=== PATIENT | male | born 1960 | race Caucasian/White ===

== ENCOUNTER → 2017-04-07 | Emergency (ER) | payer OTHER ==
[~2017-04-07] VITALS: Ht 177.8 cm; Wt 113.4 kg
[~2017-04-07] MED LIST: BUPR1TAB17 PO; CLON0.5T PO; INDO50CA PO; INDO50SU2 PR; INDOMETHACIN 25 MG CAP PO ONE; LISI10TA4 PO; NAPR500T PO; OMEP40CA2 PO; VENL75TA2 PO
[2017-04-07 21:16] VITALS: BP 199/92
== END | disposition left against medical advice (07) ==
LOC: M ED 22:16
DX: M79.89 Other specified soft tissue disorders (principal); I10 Essential (primary) hypertension; Z79.899 Other long term (current) drug therapy; Z79.1 Long term (current) use of non-steroidal anti-inflammatories (NSAID)

== ENCOUNTER → 2017-04-08 | Outpatient (CLI) | payer OTHER ==
[~2017-04-08] MED LIST changes: -INDOMETHACIN 25 MG CAP PO ONE
--- NOTE | 2017-04-08 14:58 | REP ---
LEFT KNEE SERIES: Two views of the left knee performed. No definite acute fracture is seen. There is no dislocation. There is mild to moderate medial joint space narrowing with subchondral sclerosis. There is spurring of the superior pole of the patella. There is a small joint effusion. Signed by Andrey Smith MD 04/08/2017 04:01 P
== END ==
LOC: M ADAMS 14:26
PROVIDERS: ATTEND Family Medicine
DX: M25.562 Pain in left knee (principal)

== ENCOUNTER → 2018-11-13 | Outpatient (REF) | payer OTHER ==
[~2018-11-13] MED LIST changes: -BUPR1TAB17 PO; +BUPR1TAB53 PO; -CLON0.5T PO; +CLON0.5T8 PO; +NAPR-50 PO; -NAPR500T PO
[2018-11-13 13:15] LABS: BASO # 0.1 10^3/uL (0.0-0.2); BASO % 0.8 % (0.0-1.0); EOS # 0.3 10^3/uL (0.0-0.50); EOS % 4.5 % (0.0-3.0); HEMATOCRIT 40.8 % (42.0-52.0); HEMOGLOBIN 13.7 g/dl (13.5-17.5); LYMPH # 1.6 10^3/uL (1.5-4.5); LYMPH % 21.2 % (24.0-44.0); MEAN CORPUSCULAR HEMOGLOBIN 31.6 pg (27.0-33.0); MEAN CORPUSCULAR HGB CONC 33.6 g/dl (32.0-36.5); MONO # 0.7 10^3/uL (0.0-0.8); MONO % 9.6 % (0.0-5.0); NEUTROPHILS # 4.7 10^3/uL (1.8-7.7); NEUTROPHILS % 63.1 % (36.0-66.0); PLATELET COUNT, AUTOMATED 299 10^3/uL (150-450); RED BLOOD COUNT 4.34 10^6/uL (4.30-6.10); WHITE BLOOD COUNT 7.4 10^3/uL (4.0-10.0)
[2018-11-13 13:32] LABS: ALT/SGPT 27 U/L (12-78); BILIRUBIN,TOTAL 0.5 MG/DL (0.2-1.0); BLOOD UREA NITROGEN 23 MG/DL (7-18); C REACTIVE PROTEIN QUANTITATIV < 0.30 MG/DL (0.00-0.30); CARBON DIOXIDE LEVEL 27 MEQ/L (21-32); CHLORIDE LEVEL 108 MEQ/L (98-107); CHOLESTEROL LEVEL 215 MG/DL (<200); CHOLESTEROL RISK RATIO 3.981 (<5); CREATININE FOR GFR 0.79 MG/DL (0.70-1.30); FERRITIN 69 NG/ML (26-388); GLOMERULAR FILTRATION RATE > 60.0 (>56); GLUCOSE, FASTING 103 MG/DL (70-100); HDL CHOLESTEROL 54 MG/DL (>40); IRON (FE) 73 UG/DL (65-175); LDL CHOLESTEROL 143 MG/DL (<100); NON-HDL-C 161 MG/DL; PERCENT SATURATION 21.2 % (19.7-50.0); RHEUMATOID FACTOR QUANT < 10.0 IU/ML (<15.0); SODIUM LEVEL 143 MEQ/L (136-145); TOTAL IRON BINDING CAPACITY 345 UG/DL (250-450); TRIGLYCERIDES LEVEL 90 MG/DL (<150)
[2018-11-13 13:39] LABS: TOTAL 25(OH) VITAMIN D 33.2 NG/ML (30.0-100.0)
[2018-11-13 14:00] LABS: ERYTHROCYTE SEDIMENTATION RATE 7 mm/hr (0-20)
[2018-11-14 10:59] LABS: DRVV SCREEN 41.2 SEC
[2018-11-15 00:06] LABS: ANA (HEP2) Negative (.); Lyme Disease IgG/IgM Antibodie <0.91 ISR (0.00-0.90); Lyme Disease IgM Ab Quantitati <0.80 index (0.00-0.79)
== END ==
LOC: M SFHCADAM 10:20
PROVIDERS: ATTEND Physician Assistant Medical
DX: I10 Essential (primary) hypertension (principal); F15.20 Other stimulant dependence, uncomplicated; D50.9 Iron deficiency anemia, unspecified; E55.9 Vitamin D deficiency, unspecified; M25.50 Pain in unspecified joint

== ENCOUNTER → 2018-11-20 | Outpatient (REF) | payer OTHER ==
[2018-11-20 13:18] LABS: BASO % 0.6 % (0.0-1.0); EOS # 0.4 10^3/uL (0.0-0.50); EOS % 5.1 % (0.0-3.0); HEMATOCRIT 39.7 % (42.0-52.0); HEMOGLOBIN 13.4 g/dl (13.5-17.5); LYMPH # 1.8 10^3/uL (1.5-4.5); LYMPH % 25.6 % (24.0-44.0); MEAN CORPUSCULAR HEMOGLOBIN 31.6 pg (27.0-33.0); MEAN CORPUSCULAR HGB CONC 33.8 g/dl (32.0-36.5); MEAN CORPUSCULAR VOLUME 93.6 fl (80.0-96.0); MONO # 0.8 10^3/uL (0.0-0.8); MONO % 11.7 % (0.0-5.0); NEUTROPHILS % 56.7 % (36.0-66.0); PLATELET COUNT, AUTOMATED 279 10^3/uL (150-450); RED BLOOD COUNT 4.24 10^6/uL (4.30-6.10)
[2018-11-20 13:42] LABS: ERYTHROCYTE SEDIMENTATION RATE 7 mm/hr (0-20)
[2018-11-20 13:53] LABS: ALBUMIN 4.3 GM/DL (3.2-5.2); ALT/SGPT 31 U/L (12-78); BILIRUBIN,TOTAL 0.5 MG/DL (0.2-1.0); BLOOD UREA NITROGEN 32 MG/DL (7-18); CALCIUM LEVEL 9.1 MG/DL (8.5-10.1); CARBON DIOXIDE LEVEL 25 MEQ/L (21-32); CHLORIDE LEVEL 104 MEQ/L (98-107); CREATININE FOR GFR 0.82 MG/DL (0.70-1.30); GLOMERULAR FILTRATION RATE > 60.0 (>56); GLUCOSE, FASTING 107 MG/DL (70-100); RHEUMATOID FACTOR QUANT < 10.0 IU/ML (<15.0); SODIUM LEVEL 140 MEQ/L (136-145); TOTAL 25(OH) VITAMIN D 46.9 NG/ML (30.0-100.0); TOTAL PROTEIN 7.2 GM/DL (6.4-8.2); VITAMIN B12 LEVEL 449 PG/ML
[2018-11-20 13:54] LABS: FOLATE 11.7 NG/ML
[2018-11-20 14:43] LABS: HEMOGLOBIN A1c 5.2 %
[2018-11-21 10:34] LABS: DRVV SCREEN 43.1 SEC
[2018-11-22 08:35] LABS: VITAMIN E(ALPHA TOCOPHEROL) 11.5 mg/L (7.0-25.1); VITAMIN E(GAMMA TOCOPHEROL) 1.4 mg/L (0.5-5.5)
[2018-11-25 00:06] LABS: ANCA-ATYPICAL <1:20 titer (Neg:<1:20); ANTI DOUBLE STRAND-DNA AB <1 IU/mL (0-9); ANTINUCLEAR ANTIBODIES DIRECT Negative (Negative); COPPER PLASMA 83 ug/dL (72-166); CYTOPLASMIC NEUTROP AB ANCA-C <1:20 titer (Neg:<1:20); LEAD BLOOD ADULT 1 ug/dL (0-4); Lyme Disease IgG/IgM Antibodie <0.91 ISR (0.00-0.90); Lyme Disease IgM Ab Quantitati <0.80 index (0.00-0.79); MERCURY LEVEL None Detected ug/L (0.0-14.9); PERINUCLEAR AB ANCA-P <1:20 titer (Neg:<1:20); SJOGREN'S ANTI SS-A <0.2 AI (0.0-0.9); SJOGREN'S ANTI SS-B <0.2 AI (0.0-0.9); VITAMIN B1 LEVEL WHOLE BLOOD 130.3 nmol/L (66.5-200.0); VITAMIN B6,PYRIDOXAL PHOSPHATE 9.5 ug/L (5.3-46.7)
== END ==
LOC: M LABNEURO 09:08
PROVIDERS: ATTEND Psychiatry & Neurology Neurology
DX: G62.9 Polyneuropathy, unspecified (principal); G31.84 Mild cognitive impairment of uncertain or unknown etiology; R26.89 Other abnormalities of gait and mobility

== ENCOUNTER → 2018-12-25 | Outpatient (REF) | payer OTHER ==
[~2018-12-25] MED LIST changes: +AMLO5TAB6 PO; +HYDR25TAB PO; +LISI40TA PO; +MELO15TA28 PO
[2018-12-25 18:29] LABS: BASO # 0.1 10^3/uL (0.0-0.2); BASO % 0.6 % (0.0-1.0); EOS # 0.3 10^3/uL (0.0-0.50); HEMOGLOBIN 13.3 g/dl (13.5-17.5); LYMPH # 2.3 10^3/uL (1.5-4.5); MEAN CORPUSCULAR HEMOGLOBIN 31.3 pg (27.0-33.0); MEAN CORPUSCULAR HGB CONC 33.3 g/dl (32.0-36.5); MEAN CORPUSCULAR VOLUME 94.1 fl (80.0-96.0); MONO # 0.8 10^3/uL (0.0-0.8); MONO % 7.7 % (0.0-5.0); NEUTROPHILS # 6.2 10^3/uL (1.8-7.7); NEUTROPHILS % 64.1 % (36.0-66.0); PLATELET COUNT, AUTOMATED 302 10^3/uL (150-450); RED BLOOD COUNT 4.25 10^6/uL (4.30-6.10); WHITE BLOOD COUNT 9.7 10^3/uL (4.0-10.0)
[2018-12-25 18:31] LABS: BLOOD UREA NITROGEN 22 MG/DL (7-18); CARBON DIOXIDE LEVEL 31 MEQ/L (21-32); CHLORIDE LEVEL 108 MEQ/L (98-107); CREATININE FOR GFR 0.87 MG/DL (0.70-1.30); GLOMERULAR FILTRATION RATE > 60.0 (>56); GLUCOSE, FASTING 59 MG/DL (70-100); SODIUM LEVEL 143 MEQ/L (136-145)
[2018-12-25 18:45] LABS: INR 1.07
== END ==
LOC: M SFHCADAM 14:45
PROVIDERS: ATTEND Physician Assistant Medical
DX: Z01.818 Encounter for other preprocedural examination (principal); M17.12 Unilateral primary osteoarthritis, left knee

== ENCOUNTER → 2018-12-25 | Outpatient (CLI) | payer OTHER ==
--- NOTE | 2018-12-26 06:55 | REP ---
Clinical: Preoperative assessment . Comparison: None . Technique: PA and lateral. Findings: The mediastinum and cardiac silhouette are normal. The lung garcia demonstrate chronic-appearing changes without acute consolidation, effusion, or pneumothorax. The skeletal structures are intact and normal. Impression: 1. No acute cardiopulmonary process. Electronically Signed by Harry Moore MD 12/26/2018 06:47 A
== END ==
LOC: M ADAMS 14:50
PROVIDERS: ATTEND Physician Assistant Medical
DX: Z01.818 Encounter for other preprocedural examination (principal); M17.12 Unilateral primary osteoarthritis, left knee

== ENCOUNTER 2019-01-08 11:07 | Inpatient (IN) | payer OTHER ==
--- NOTE | 2019-01-02 15:28 | HPE ---
DATE OF ADMISSION: 01/08/2019 HISTORY OF PRESENT ILLNESS: This is a pleasant male with continuing symptomatic left knee osteoarthritis. He has consented for a left total knee arthroplasty per Dr. Pedro Lake. Medical optimization per DELVIS Garcia. X-rays are consistent with advanced osteoarthritis. ALLERGIES: NO KNOWN DRUG ALLERGIES. MEDICAL PROBLEM LIST: Left knee symptomatic osteoarthritis and hypertension. MEDICATIONS: - Drisdol 50,000 units one capsule orally weekly - hydrochlorothiazide 25 mg tablet one tablet the morning - Lisinopril 40 mg tablet 1 tablet orally daily - amlodipine besylate 5 mg tablet 1 tablet orally twice a day - Mobic 15 mg tablet 1 tablet orally once a day The patient notes his recent blood pressure medication is causing coldness at the hands. His primary care provider is aware of that and they are planning on changing it postoperatively. Medical problem list includes symptomatic left knee osteoarthritis. Morbid obesity. Sensorineural hearing loss. Nicotine dependence. The patient wanted to make it clear that there are weeks that he does not smoke at all. He has one cigarette socially and never actually buys them. Hypertension. Noncompliance. Anxiety. Fatty liver. Iron deficiency anemia. Caffeine addiction. Vitamin D deficiency. Questionable rheumatoid arthritis. Chronic joint pain. SOCIAL HISTORY: As mentioned above regarding his cigarette intake. Denies ethanol intake or illicit drugs. Admits to four to six cups of coffee daily, large consumption of soda. FAMILY HISTORY: Noncontributory. He had hospitalization as a child for encephalitis. REVIEW OF SYSTEMS: Denies chest pain, shortness of breath, dyspnea on exertion, fever, chills, malaise, upper respiratory or urinary tract symptoms. LABORATORY DATA: 11/13/2018 were reviewed. BUN was elevated 23, GFR greater than 60. Otherwise no gross abnormalities. Hematocrit is slightly low at 40.8. Lymph percentage 21.2, slightly low mono percentage 9.6, eosinophils 4.5%. Chest x-ray completed by [facility] on 12/25/2018 showed no acute cardiac cardiopulmonary process. There were further preop labs by Amrita Juares, 12/25/2018: RBC 4.25, hemoglobin 13.3, hematocrit 40.0, mono percentage 7.7, glucose 59, BUN 22, chloride 108, anion gap 4. Otherwise within normal limits. I do not have electrocardiogram (EKG) results for viewing. PHYSICAL EXAMINATION: Blood pressure 138/67, pulse 42, temperature 97, height 68, weight 240, BMI 36.5, respiration 18. This is a pleasant, well-developed, well-nourished obese male in no acute distress. He is alert and oriented times three. Mood and affect are appropriate. Normocephalic. Neck: Supple. Negative jugular venous distention (JVD) or bruits. Lungs clear to auscultation. Chest with regular rate and rhythm. Bowel sounds x4, soft, nontender. Bilateral lower extremity: Skin is benign, noninfectious looking, intact. Benign noninfectious looking left knee. Positive medial joint line tenderness with crepitance about the knee through flexion and extension. IMPRESSION: 1. Left knee symptomatic advanced tricompartmental degenerative joint disease. To the patient consented for left total knee arthroplasty per Dr. Pedro Lake. 2. Medical optimization per Amrita Juares. 3. On-call to OR 2 grams IV Kefzol in OR. 4. Sequential compression device (SCD) and TEDs in the OR. 5. Reminder the patient does have sensorineural hearing loss. MTDD
[~2019-01-08] VITALS: Ht 175.3 cm; Wt 112.0 kg
[~2019-01-08 11:07] MED LIST changes: +LR 1,000 ML IV ONE
[2019-01-08] MEDS ORDERED: fentaNYL 100 MCG/2 ML INJECTION (J3010) As Ordered ONE ×2 (11:29→13:01)
[2019-01-08] MEDS ORDERED: PROPOFOL 200 MG/20 ML VIAL As Ordered ONE ×5 (11:29→15:53)
[2019-01-08] MEDS ORDERED: LIDOCAINE 2% INJ 100 MG/5 ML SDV (FOR ANES.) As Ordered ONE (11:29)
[2019-01-08] MEDS ORDERED: MIDAZOLAM INJ 2 MG/2 ML VIAL (J2250) As Ordered ONE ×2 (11:29→13:01)
[2019-01-08] MEDS ORDERED: BUPIVACAINE/DEXTROSE 0.75% 2 ML AMP As Ordered ONE (11:34)
[2019-01-08] MEDS ORDERED: BISO5TAB5 (12:20)
[2019-01-08] MEDS ORDERED: ACET1TAB55 PO ×2 (12:20)
[2019-01-08] MEDS ORDERED: ceFAZolin 1GM INJ (J0690 PER 500MG) As Ordered ONE (12:38)
[2019-01-08] MEDS ORDERED: EPINEPHrine INJ 1 MG/ML 1ML AMP As Ordered ONE (12:38)
[2019-01-08] MEDS ORDERED: TRANEXAMIC ACID 100 MG/ML 10ML VIAL As Ordered ONE (12:38)
[2019-01-08] MEDS ORDERED: BUPIVACAINE LIPOSOME/PF 1.3% 20ML VIAL (13.3MG/ML)(EXPAREL)(C9290 PER1MG) As Ordered ONE (12:39)
--- NOTE | 2019-01-08 12:49 | IPN ---
DATE: 01/08/2019 The patient was seen and examined. He wishes to go ahead with a left total knee arthroplasty. He does have some memory issues and is seeing neurology about this. He understands the nature of the procedure, the risks of bleeding, infection, damage to nerves and vessels, persistent pain, stiffness, wear loosening, blood clots, medical problems, among others.
[2019-01-08] MEDS ORDERED: MUPI2OI (13:07)
[2019-01-08] MEDS: MIDAZOLAM INJ 2 MG/2 ML VIAL (J2250) IV PRN ×2 (13:22→13:27)
[2019-01-08] MEDS: fentaNYL 100 MCG/2 ML INJECTION (J3010) IV PRN ×2 (13:22→13:27)
[2019-01-08] MEDS ORDERED: GLYCOPYRROLATE INJ 0.2 MG/ML 2 ML VIAL IV ONE (14:00)
[2019-01-08] MEDS ORDERED: GLYCOPYRROLATE INJ 0.2 MG/ML 2 ML VIAL As Ordered ONE (14:34)
[2019-01-08] MEDS ORDERED: ONDANSETRON 4MG/2ML VIAL (J2405) IV PRN ×2 (16:30)
[2019-01-08] MEDS ORDERED: LR 1,000 ML IV SCH (16:30)
[2019-01-08] MEDS ORDERED: FLEET ENEMA PR PRN (16:30)
[2019-01-08] MEDS ORDERED: METOCLOPRAMIDE INJ 10MG/2ML VIAL (J2765) IV PRN (16:30)
[2019-01-08] MEDS ORDERED: PERCOCET 5MG/325MG TAB PO PRN ×2 (16:30)
[2019-01-08] MEDS ORDERED: fentaNYL 100 MCG/2 ML INJECTION (J3010) IV PRN (16:30)
[2019-01-08] MEDS ORDERED: ACETAMINOPHEN TAB 650MG DOSE (2X325MG) PO PRN (16:30)
[2019-01-08] MEDS ORDERED: MORPHINE 4 MG/ML 1ML VIAL/SYRINGE (J2270) IV PRN ×2 (16:30)
--- NOTE | 2019-01-08 17:12 | REP ---
Left knee series: Two views: History: Postoperative evaluation. Comparison left knee radiographs April 08, 2017. Findings: The patient is status post left knee arthroplasty. Arthroplasty components are well aligned with respect to each other and their samish bone. Anterior skin ronit are seen. Periarticular soft tissue emphysema and swelling is noted. Impression: Status post left knee arthroplasty. Electronically Signed by Wilfrido Shah MD 01/08/2019 05:19 P
[2019-01-08 17:45] VITALS: BP 131/98
[2019-01-08 18:15] VITALS: BP 131/59
[2019-01-08 19:15] VITALS: BP 175/82
[2019-01-08 20:15] VITALS: BP 173/70
[2019-01-08 21:15] VITALS: BP 168/68
[2019-01-08 22:00] VITALS: BP 158/72
[2019-01-09 02:00] VITALS: BP 132/68
[2019-01-09] MEDS: LR 1,000 ML IV SCH ×2 (05:50→06:39)
[2019-01-09 06:00] VITALS: BP 134/62
[2019-01-09] MEDS ORDERED: ONDANSETRON 4 MG TAB (S0181) PO PRN (07:00)
[2019-01-09 07:02] LABS: HEMATOCRIT 33.6 % (42.0-52.0); HEMOGLOBIN 11.4 g/dl (13.5-17.5); MEAN CORPUSCULAR HEMOGLOBIN 31.5 pg (27.0-33.0); MEAN CORPUSCULAR HGB CONC 33.9 g/dl (32.0-36.5); MEAN CORPUSCULAR VOLUME 92.8 fl (80.0-96.0); PLATELET COUNT, AUTOMATED 222 10^3/uL (150-450); RED BLOOD COUNT 3.62 10^6/uL (4.30-6.10)
[2019-01-09] MEDS: MIRALAX *UNIT DOSE* 17GM PACKET PO SCH ×2 (09:00→09:27)
[2019-01-09] MEDS: MOM 30ML SUSPENSION UDC PO SCH ×2 (09:00→09:27)
[2019-01-09] MEDS ORDERED: XARE10TA PO (09:07)
[2019-01-09] MEDS ORDERED: PERC5TAB12 PO (09:07)
[2019-01-09] MEDS: PERCOCET 5MG/325MG TAB PO PRN ×2 (09:31→20:37)
--- NOTE | 2019-01-09 09:55 | RO ---
DATE OF PROCEDURE: 01/08/2019 PREOPERATIVE DIAGNOSIS: Left knee osteoarthritis. POSTOPERATIVE DIAGNOSIS: Left knee osteoarthritis, severe significant varus deformity in flexion contracture. PROCEDURE: Left total knee arthroplasty using an Attune rotating platform posterior stabilized size 5 femur, size 7 tibia tray, 12 polyethylene, 38 patellar button. SURGEON: Pedro Lake MD PROSPECTING DRILLER: DELVIS Lowe ANESTHESIA: Spinal. ESTIMATED BLOOD LOSS: 50. COMPLICATIONS: None. INDICATIONS: This is a 58-year-old, obese gentleman who has had persistent knee pain secondary to arthritis and some varus deformity. He failed conservative management and wished to go ahead with surgical treatment. He understood the nature of this, the risks of bleeding, infection, damage to nerves, vessels, persistent pain, stiffness, blood clots, medical problems, , among others. PROCEDURE: The patient was taken to the operating room and placed in supine position after spinal anesthesia was induced. The left lower extremity was prepped and draped in usual sterile fashion. Time-out was performed. Tourniquet was inflated. I then created a longitudinal incision over the anterior aspect of the knee and a medial parapatellar arthrotomy was performed. With some difficulty I was able to jorge the patella but I did have to do a lateral release to do so. I flexed the knee up, removed some large osteophytes and used a canal initiating reamer followed by the intramedullary guide on the femoral side and pinned this in place. The retail store assistant made the distal femoral cut removing about 9 mm of bone and it was set at 5 degrees of valgus with the guide. I then sized the femur to be a 5. We had pinholes in the end of the femur and external rotation was dialed in. I then placed the size 5 cutting block, secured it in place and made the remaining cuts. I removed the excess bone. I then prepared the tibia and the retractors were placed. I placed the tibial alignment guide, appropriate amount (dictation cut off). I checked it with the external alignment guide. The proximal tibia cut was made protecting soft tissues, removed the bone. I did have to take a fairly sizable cut due to his varus deformity. I ended up taking two off the low side and the bone was very hard. I then removed soft tissue and osteophytes from either side of the knee, placed the box cutting guide on the femur as the posterior cruciate ligament (PCL) was deficient and made the remaining three cuts removing this bone. I then prepared the tibial surface. Prior to this, I used spacer blocks and determined that a size 12 was appropriate thickness in flexion and extension. The tibial tray was prepared. It sized to be a 7. I drilled and broached and placed the trial components and the components fit very nicely. He had excellent range of motion and stability, soft tissue balance. I had done a medial release at the beginning. I did have to slightly extend that at this point, but was able to balance him quite well. I then freehand cut the patella removing about 70 mm of bone. Sized to be a 38. The drill holes were placed and the trial component was put in place and the patella tracked for (dictation cut off). I also placed drill holes in the end of the femur. Once I was satisfied the trial components. I removed these. The retail store assistant prepared the bone cement in the modern technique on the back table. I irrigated the bony surfaces. Dried them carefully. I placed the Exparel in the deep tissues. I then cemented on the tibial component and the femoral component. I removed excess bone cement. Placed polyethylene. Brought the knee out in near extension and cemented on the patella. Held it in place with a patellar clamp and removed all excess bone cement. I irrigated copiously. Placed the tranexamic acid (TXA) in the knee and then closed the deep layer with #1 Vicryl suture and running Stratafix suture and did a final irrigation prior to final wound closure deep. I put the knee through range of motion. There was no clicking. There was excellent watertight closure. Irrigated, closed the subcu with #2-0 Vicryl and the skin with ronit. Sterile dressing was applied and the tourniquet was deflated at 69 minutes. He was taken to recovery room in stable condition. There were known complications. The plan will be routine postop. This is coded as an unusually difficult procedure due to the patient's morbid obesity and his significant deformity. This added a significant amount of time and difficulty to the case. The retail store assistant was instrumental in holding retractors and making one of the bone cuts, mixing the bone cement and assisting in wound closure.
[2019-01-09] MEDS ORDERED: MORPHINE 15 MG SA TAB PO ONE (13:15)
[2019-01-09 14:00] VITALS: BP 144/59
[2019-01-09] MEDS: RIVAROXABAN 10 MG TAB (XARELTO) PO SCH (17:36)
[2019-01-09 22:00] VITALS: BP 137/63
[2019-01-10] MEDS: PERCOCET 5MG/325MG TAB PO PRN ×2 (05:36→19:59)
[2019-01-10 06:00] VITALS: BP 138/76
[2019-01-10 06:50] LABS: HEMATOCRIT 33.3 % (42.0-52.0); HEMOGLOBIN 11.3 g/dl (13.5-17.5); MEAN CORPUSCULAR HGB CONC 33.9 g/dl (32.0-36.5); MEAN CORPUSCULAR VOLUME 94.3 fl (80.0-96.0); PLATELET COUNT, AUTOMATED 208 10^3/uL (150-450); RED BLOOD COUNT 3.53 10^6/uL (4.30-6.10); WHITE BLOOD COUNT 11.2 10^3/uL (4.0-10.0)
--- NOTE | 2019-01-10 08:35 | IPNPDOC ---
Subjective Date Seen The patient was seen on 01/10/19. Subjective Chief Complaint/HPI Had some low back pain yesterday when he tried to get OOB. Pain radiated to right groin. He has chronic intermittent LBP and this is similar to flare-ups he has had in the past. He required multiple attempts at his spinal but his back pain is lower than the spinal site Has fever this am - No SOB or cough. Had urinary retention the night after surgery ralated to his spinal, required straight cath x1. Urinating normally now without dysuria, frequency or urgency. Left knee feels warm and swollen to patient but pain controlled. Constitutional: Reports: Fever Pulmonary: Denies: Dyspnea, Cough Cardiovascular: Denies: Chest Pain, Palpitations Gastrointestinal: Reports: Other Symptoms (Had significant heartburn last night); Denies: Nausea, Vomiting, Abdominal Pain, Diarrhea, Constipation Genitourinary: Denies: Dysuria, Frequency Musculoskeletal: Reports: Joint Pain (Left knee as expected post-op) Objective Physical Examination General Exam: Positive: Alert, No Acute Distress Chest Exam: Positive: Clear to auscultation; Negative: Rales, Rhonchi, Wheezing Heart Exam: Positive: Rate Normal, Regular Rhythm Abdomen Exam: Positive: Normal bowel sounds, Soft; Negative: Tenderness Extremity Exam: Positive: Swelling (left knee a little warm and swollen, but no erythema or significant tenderness. ), Other (Back with some eccymosis and heeled injection sites in mid lumbar spine without swelling, erythema or significant tenderness. Lower thoracic spine without tenderness over vertebral bodies or perispinal muscles. ); Negative: Edema Assessment /Plan Problems (1) Fever Status: Acute Problem Text: Temp 101.9 this am. WBC down c/w yesterday. Likely post-op atelectasis. Encourage IS and OOB. Monitor temp and symptoms. If persists, will get U/C and CXR. Spinal site has ecchymosis and a little tender from multiple attempts at spinal but no swelling, erythema or significant tenderness to suggest abscess or infection. (2) Status post left knee replacement Problem Text: per surgery Plan/VTE VTE Prophylaxis Ordered?: Yes (xarelto) VS, I&O, 24H, Fishbone Vital Signs/I&O Vital Signs Date Time Temp Pulse Resp B/P (MAP) Pulse Ox O2 Delivery O2 Flow Rate FiO2 01/10/19 06:06 15 01/10/19 06:00 101.5 74 138/76 (96) 98 01/09/19 06:00 2.0 I&O- Last 24 Hours up to 6 AM 01/10/19 06:00 Intake Total 1920 ml Output Total 1750 ml Balance 170 ml Laboratory Data 24H LABS Laboratory Tests 2 01/10/19 06:30: Nucleated Red Blood Cells % (auto) 0.0 CBC/BMP Laboratory Tests 01/10/19 06:30 Red Blood Count 3.53 L, Mean Corpuscular Volume 94.3, Mean Corpuscular Hemoglobin 32.0, Mean Corpuscular Hemoglobin Concent 33.9, Red Cell Distribution Width 12.6 HARLEY CORTEZ PA-C Jan 10, 2019 08:35 Joey Batres MD Jan 10, 2019 15:51
[2019-01-10] MEDS ORDERED: CALCIUM CARBONATE 500 MG CHEW U/D PO PRN (08:45)
[2019-01-10] MEDS: MIRALAX *UNIT DOSE* 17GM PACKET PO SCH (09:10)
[2019-01-10] MEDS: MOM 30ML SUSPENSION UDC PO SCH (09:10)
[2019-01-10 09:54] LABS: HEPATITIS B SURFACE ANTIGEN NEGATIVE (NEGATIVE)
[2019-01-10 10:45] LABS: ALBUMIN 3.2 GM/DL (3.2-5.2); ALT/SGPT 22 U/L (12-78); BILIRUBIN,TOTAL 0.7 MG/DL (0.2-1.0); BLOOD UREA NITROGEN 22 MG/DL (7-18); CALCIUM LEVEL 7.9 MG/DL (8.5-10.1); CARBON DIOXIDE LEVEL 29 MEQ/L (21-32); CHLORIDE LEVEL 108 MEQ/L (98-107); CREATININE FOR GFR 0.78 MG/DL (0.70-1.30); GLOMERULAR FILTRATION RATE > 60.0 (>56); GLUCOSE, FASTING 117 MG/DL (70-100); POTASSIUM SERUM 3.4 MEQ/L (3.5-5.1); SODIUM LEVEL 142 MEQ/L (136-145); TOTAL PROTEIN 5.9 GM/DL (6.4-8.2)
[2019-01-10 14:00] VITALS: BP 133/68
[2019-01-10] MEDS: RIVAROXABAN 10 MG TAB (XARELTO) PO SCH (18:20)
[2019-01-10 22:00] VITALS: BP 139/71
[2019-01-11 06:00] VITALS: BP 133/68
[2019-01-11] MEDS ORDERED: XARE10TA PO (06:38)
[2019-01-11 07:10] LABS: HEMATOCRIT 32.3 % (42.0-52.0); HEMOGLOBIN 10.9 g/dl (13.5-17.5); MEAN CORPUSCULAR HEMOGLOBIN 31.1 pg (27.0-33.0); MEAN CORPUSCULAR HGB CONC 33.7 g/dl (32.0-36.5); MEAN CORPUSCULAR VOLUME 92.3 fl (80.0-96.0); PLATELET COUNT, AUTOMATED 201 10^3/uL (150-450); WHITE BLOOD COUNT 8.6 10^3/uL (4.0-10.0)
--- NOTE | 2019-01-11 08:43 | IPNPDOC ---
Subjective Date Seen The patient was seen on 01/11/19. Subjective Chief Complaint/HPI Patient feels well today. Back pain has almost completely resolved. No dysuria. No SOb or cough Constitutional: Reports: Fever (Temp down to 99.5) Pulmonary: Denies: Dyspnea, Cough Cardiovascular: Denies: Chest Pain, Palpitations Gastrointestinal: Denies: Nausea, Vomiting, Abdominal Pain, Diarrhea, Constipation Genitourinary: Denies: Dysuria, Frequency, Hematuria Objective Physical Examination General Exam: Positive: Alert, No Acute Distress (up in chair, bright, alert) Chest Exam: Positive: Clear to auscultation; Negative: Rales, Rhonchi, Wheezing Heart Exam: Positive: Rate Normal, Regular Rhythm Abdomen Exam: Positive: Normal bowel sounds, Soft; Negative: Tenderness Extremity Exam: Positive: Swelling (left knee a little warm and swollen, but no erythema or significant tenderness. ), Other (Back with some eccymosis and heeled injection sites in mid lumbar spine without swelling, erythema or significant tenderness. Lower thoracic spine without tenderness over vertebral bodies or perispinal muscles. ); Negative: Edema Assessment /Plan Problems (1) Fever Status: Acute Response to Treatment: Improving Problem Text: 01/11 - No further fever. Tmax 99.5 this am. WBC normalized. No cough or SOB. Cont IS and OOB for presumed post-op atelectasis. U/A without bacteria, leukocytes or nitrates. Some RBCs likely from straight cath trauma earlier in admission. (2) Status post left knee replacement Problem Text: per surgery (3) HTN (hypertension) Status: Chronic Response to Treatment: Stable Problem Text: Patient has apparently been taking all of his usual Home meds which he brought with him to hospital. BP stable, so will d/c hoe on usual meds. Plan/VTE VTE Prophylaxis Ordered?: Yes (xarelto) Disposition medically stable for d/c from our standpoint. VS, I&O, 24H, Fishbone Vital Signs/I&O Vital Signs Date Time Temp Pulse Resp B/P (MAP) Pulse Ox O2 Delivery O2 Flow Rate FiO2 01/11/19 06:00 99.5 71 19 133/68 (89) 98 01/09/19 06:00 2.0 I&O- Last 24 Hours up to 6 AM 01/11/19 06:00 Intake Total 1920 ml Output Total 1450 ml Balance 470 ml Laboratory Data 24H LABS Laboratory Tests 2 01/10/19 16:23: Urine Color YELLOW, Urine Appearance CLEAR, Urine pH 6.0, Urine Specific [place] 1.026, Urine Protein NEGATIVE, Urine Glucose (UA) NEGATIVE, Urine Ketones NEGATIVE, Urine Blood 1+H, Urine Nitrite NEGATIVE, Urine Bilirubin NEGATIVE, Urine Urobilinogen 4.0H, Urine Leukocyte Esterase NEGATIVE, Urine WBC (Auto) 0, Urine RBC (Auto) 19H, Urine Hyaline Casts (Auto) 0, Urine Bacteria (Auto) NEG ATIVE, Urine Squamous Epithelial Cells 0, Urine Mucus (Auto) SMALL, Urine Sperm (Auto) 01/11/19 06:43: Nucleated Red Blood Cells % (auto) 0.0 CBC/BMP Laboratory Tests 01/11/19 06:43 Red Blood Count 3.50 L, Mean Corpuscular Volume 92.3, Mean Corpuscular Hemogl obin 31.1, Mean Corpuscular Hemoglobin Concent 33.7, Red Cell Distribution Width 12.5 Attending Note Attending Note patient remains afebrile. lungs clear. should be ready for discharge if Ortho approves. HARLEY CORTEZ PA-C Jan 11, 2019 08:43 Joey Batres MD Jan 11, 2019 10:13
[2019-01-11] MEDS: MOM 30ML SUSPENSION UDC PO SCH (08:44)
[2019-01-11] MEDS: MIRALAX *UNIT DOSE* 17GM PACKET PO SCH (08:44)
[2019-01-11] MEDS: PERCOCET 5MG/325MG TAB PO PRN (08:44)
[2019-01-11 12:12] LABS: BLOOD UREA NITROGEN 19 MG/DL (7-18); CALCIUM LEVEL 7.7 MG/DL (8.5-10.1); CARBON DIOXIDE LEVEL 26 MEQ/L (21-32); CHLORIDE LEVEL 106 MEQ/L (98-107); CREATININE FOR GFR 0.75 MG/DL (0.70-1.30); GLOMERULAR FILTRATION RATE > 60.0 (>56); GLUCOSE, FASTING 104 MG/DL (70-100); POTASSIUM SERUM 3.5 MEQ/L (3.5-5.1); SODIUM LEVEL 140 MEQ/L (136-145)
== END 2019-01-11 11:22 | disposition home or self-care (01) | DRG 302 ==
LOC: M OR 11:07 → M MS5PR 17:30
PROVIDERS: ADMIT Orthopaedic Surgery; ATTEND Orthopaedic Surgery
PROC: 0SRD0J9 Replacement of Left Knee Joint with Synthetic Substitute, Cemented, Open Approach (ICD-10-PCS; principal; 2019-01-08 12:45)
DX: M17.12 Unilateral primary osteoarthritis, left knee (principal); K76.0 Fatty (change of) liver, not elsewhere classified; M06.9 Rheumatoid arthritis, unspecified; E66.01 Morbid (severe) obesity due to excess calories; H90.5 Unspecified sensorineural hearing loss; I10 Essential (primary) hypertension; F41.9 Anxiety disorder, unspecified; D50.9 Iron deficiency anemia, unspecified; R33.9 Retention of urine, unspecified; R50.82 Postprocedural fever; J98.11 Atelectasis; M54.5 Low back pain; Z68.34 Body mass index [BMI] 34.0-34.9, adult; Z79.899 Other long term (current) drug therapy; Z79.1 Long term (current) use of non-steroidal anti-inflammatories (NSAID)

== ENCOUNTER → 2019-02-13 | Outpatient (REF) ==
[~2019-02-13] MED LIST changes: +ACET1TAB55 PO; +BISO5TAB5; -LR 1,000 ML IV ONE; +MUPI2OI; -NAPR-50 PO; +NAPR-837 PO; +PERC5TAB12 PO; +XARE10TA PO
--- NOTE | 2019-02-14 02:30 | REP ---
Clinical: Technique: AP, lateral, bilateral oblique and sunrise views of the left knee. Findings: Evidence for prior replacement. Femoral and tibial components appear normal. Mild soft tissue swelling and possible effusion cannot be excluded. Postoperative and degenerative changes involving the patella remains stable. Impression: Cannot exclude mild swelling and effusion. Electronically Signed by Harry Moore MD 02/14/2019 02:22 A
== END ==
LOC: M SMT 10:42
PROVIDERS: ATTEND Internal Medicine
DX: Z02.71 Encounter for disability determination (principal)

== ENCOUNTER → 2019-05-08 | Outpatient (CLI) | payer OTHER ==
[~2019-05-08] MED LIST changes: -INDO50CA PO; +INDO50CA11 PO
--- NOTE | 2019-05-09 07:21 | ECGEPIP ---
[facility] Test Date: 2019-05-08 Pat Name: ESCOBAR FRANCO Department: Room: - Gender: Male Director Of Operations For Therapy: : 1960 Requested By: Pedro Lake Order Number: [id number] Reading MD: Lauryn Fajarod Measurements Intervals [place] Rate: 51 P: 64 TX: 150 QRS: QRSD: 184 T: QT: 465 QTc: 430 Interpretive Statements SINUS BRADYCARDIA MARKED LEFT AXIS DEVIATION RIGHT BUNDLE BRANCH BLOCK NO PRIOR Electronically Signed on 05-09-2019 7:21:42 EDT by Lauryn Fajardo
== END ==
LOC: M EKG 12:13
PROVIDERS: ATTEND Orthopaedic Surgery
DX: Z01.810 Encounter for preprocedural cardiovascular examination (principal); M24.562 Contracture, left knee; I10 Essential (primary) hypertension

== ENCOUNTER → 2019-06-12 | Outpatient (REF) | payer OTHER ==
[2019-06-12 13:45] LABS: BASO # 0.1 10^3/uL (0.0-0.2); BASO % 0.8 % (0.0-1.0); EOS # 0.4 10^3/uL (0.0-0.50); EOS % 5.7 % (0.0-3.0); HEMATOCRIT 37.7 % (42.0-52.0); HEMOGLOBIN 12.4 g/dl (13.5-17.5); LYMPH # 1.6 10^3/uL (1.5-4.5); LYMPH % 25.9 % (24.0-44.0); MEAN CORPUSCULAR HEMOGLOBIN 32.5 pg (27.0-33.0); MEAN CORPUSCULAR HGB CONC 32.9 g/dl (32.0-36.5); MONO # 0.8 10^3/uL (0.0-0.8); MONO % 12.5 % (0.0-5.0); NEUTROPHILS # 3.5 10^3/uL (1.8-7.7); NEUTROPHILS % 54.8 % (36.0-66.0); PLATELET COUNT, AUTOMATED 243 10^3/uL (150-450); RED BLOOD COUNT 3.81 10^6/uL (4.30-6.10); WHITE BLOOD COUNT 6.3 10^3/uL (4.0-10.0)
[2019-06-12 13:58] LABS: ALBUMIN 3.7 GM/DL (3.2-5.2); ALT/SGPT 24 U/L (12-78); BILIRUBIN,TOTAL 0.3 MG/DL (0.2-1.0); BLOOD UREA NITROGEN 29 MG/DL (7-18); CALCIUM LEVEL 9.3 MG/DL (8.5-10.1); CARBON DIOXIDE LEVEL 30 MEQ/L (21-32); CHLORIDE LEVEL 110 MEQ/L (98-107); CHOLESTEROL LEVEL 182 MG/DL (<200); CHOLESTEROL RISK RATIO 4.666 (<5); CREATININE FOR GFR 0.91 MG/DL (0.70-1.30); GLOMERULAR FILTRATION RATE > 60.0 (>56); GLUCOSE, FASTING 101 MG/DL (70-100); HDL CHOLESTEROL 39 MG/DL (>40); LDL CHOLESTEROL 113 MG/DL (<100); NON-HDL-C 143 MG/DL; POTASSIUM SERUM 3.9 MEQ/L (3.5-5.1); SODIUM LEVEL 145 MEQ/L (136-145); THYROID STIMULATING HORMONE 0.599 uIU/ML (0.358-3.740); TOTAL 25(OH) VITAMIN D 28.5 NG/ML (30.0-100.0); TOTAL PROTEIN 6.7 GM/DL (6.4-8.2); TRIGLYCERIDES LEVEL 151 MG/DL (<150)
== END ==
LOC: M SFHCADAM 08:07
PROVIDERS: ATTEND Physician Assistant Medical
DX: I10 Essential (primary) hypertension (principal); D50.9 Iron deficiency anemia, unspecified; F17.210 Nicotine dependence, cigarettes, uncomplicated

== ENCOUNTER 2020-08-18 09:18 | Emergency (ER) | payer OTHER ==
[~2020-08-18] VITALS: Ht 177.8 cm; Wt 113.7 kg
[~2020-08-18 09:18] MED LIST changes: +AMLO1TAB24 PO; -AMLO5TAB6 PO; +BISO5TAB14; -BISO5TAB5; +CLON0.5T2 PO; -CLON0.5T8 PO; -INDO50CA11 PO; +INDO50CA91 PO; -OMEP40CA2 PO; +OMEP40CA97 PO
[2020-08-18 09:19] VITALS: BP 183/68
[2020-08-18] MEDS ORDERED: OMEP-218 (09:28)
[2020-08-18] MEDS ORDERED: MELO15TA28 (09:28)
[2020-08-18] MEDS ORDERED: diphenhydrAMINE 50MG/ML VIAL (J1200) IV STA (09:46)
[2020-08-18] MEDS ORDERED: CLIN150C14 PO (09:49)
[2020-08-18] MEDS ORDERED: BENA25CA4 PO (09:50)
[2020-08-18] MEDS ORDERED: FAMOTIDINE INJ 20MG/2ML VIAL (S0028 PER 1) IVP ONE (10:00)
[2020-08-18] MEDS ORDERED: cefTRIAXone SOD 1 GM in D5W MINI-BAG PLUS 50 ML IV ONE (10:00)
[2020-08-18] MEDS ORDERED: dexameTHASONE 20MG/5ML VIAL (J1100 PER 1MG) IV ONE (10:00)
== END 2020-08-18 13:22 | disposition home or self-care (01) ==
LOC: M ED 09:18
DX: K12.2 Cellulitis and abscess of mouth (principal); I10 Essential (primary) hypertension; F32.9 Major depressive disorder, single episode, unspecified; F41.9 Anxiety disorder, unspecified; M54.9 Dorsalgia, unspecified; Z79.899 Other long term (current) drug therapy
CPT/HCPCS: 96365; 96366; 96375; 99283; J0696; J1100; J1200

== ENCOUNTER → 2020-12-08 | Outpatient (REF) | payer OTHER ==
[~2020-12-08] MED LIST changes: +BENA25CA4 PO; +CLIN150C15 PO; +MELO15TA28; +OMEP-218
[2020-12-08 18:26] LABS: HEMATOCRIT 44.5 % (42.0-52.0); HEMOGLOBIN 14.6 g/dl (13.5-17.5); MEAN CORPUSCULAR HEMOGLOBIN 31.4 pg (27.0-33.0); MEAN CORPUSCULAR HGB CONC 32.8 g/dl (32.0-36.5); MEAN CORPUSCULAR VOLUME 95.7 fl (80.0-96.0); PLATELET COUNT, AUTOMATED 269 10^3/uL (150-450); RED BLOOD COUNT 4.65 10^6/uL (4.30-6.10); WHITE BLOOD COUNT 8.9 10^3/uL (4.0-10.0)
[2020-12-08 18:41] LABS: HEMOGLOBIN A1c 5.1 %
[2020-12-08 18:57] LABS: APPEARANCE, URINE CLEAR (CLEAR); BACTERIA, URINE AUTO NEGATIVE (NEGATIVE); BILIRUBIN, URINE AUTO NEGATIVE (NEGATIVE); BLOOD, URINE BLOOD 2+ (NEGATIVE); COLOR, URINE STRAW (YELLOW); GLUCOSE, URINE (UA) AUTO NEGATIVE (NEGATIVE); KETONE, URINE AUTO NEGATIVE (NEGATIVE); LEUKOCYTE ESTERASE, URINE AUTO NEGATIVE (NEGATIVE); NITRITE, URINE AUTO NEGATIVE (NEGATIVE); PROTEIN, URINE AUTO NEGATIVE (NEGATIVE); RBC, URINE AUTO 2 /HPF (0-3); SPECIFIC GRAVITY URINE AUTO 1.009 (1.002-1.035); SQUAMOUS EPITHELIAL CELL UR AU 0 /HPF (0-6); UROBILINOGEN, URINE AUTO 0.2 mg/dL (0.0-2.0); WBC, URINE AUTO 1 /HPF (0-3)
[2020-12-08 19:01] LABS: ALBUMIN 4.4 GM/DL (3.2-5.2); ALT/SGPT 30 U/L (12-78); BILIRUBIN,TOTAL 0.4 MG/DL (0.2-1.0); BLOOD UREA NITROGEN 16 MG/DL (7-18); CALCIUM LEVEL 9.9 MG/DL (8.5-10.1); CARBON DIOXIDE LEVEL 27 MEQ/L (21-32); CHLORIDE LEVEL 108 MEQ/L (98-107); CHOLESTEROL LEVEL 250 MG/DL (<200); CHOLESTEROL RISK RATIO 4.629 (<5); CREATININE FOR GFR 1.02 MG/DL (0.70-1.30); FERRITIN 62 NG/ML (26-388); GLOMERULAR FILTRATION RATE > 60.0 (>56); GLUCOSE, FASTING 97 MG/DL (70-100); HDL CHOLESTEROL 54 MG/DL (>40); IRON (FE) 64 UG/DL (65-175); LDL CHOLESTEROL 180 MG/DL (<100); NON-HDL-C 196 MG/DL; PERCENT SATURATION 19.2 % (19.7-50.0); POTASSIUM SERUM 4.6 MEQ/L (3.5-5.1); SODIUM LEVEL 141 MEQ/L (136-145); THYROID STIMULATING HORMONE 0.822 uIU/ML (0.358-3.740); TOTAL IRON BINDING CAPACITY 333 UG/DL (250-450); TOTAL PROTEIN 7.5 GM/DL (6.4-8.2); TRIGLYCERIDES LEVEL 82 MG/DL (<150)
== END ==
LOC: M SFHCADAM 14:59
PROVIDERS: ATTEND Physician Assistant Medical
DX: I10 Essential (primary) hypertension (principal); K76.0 Fatty (change of) liver, not elsewhere classified; D50.9 Iron deficiency anemia, unspecified; R39.12 Poor urinary stream; R39.11 Hesitancy of micturition

== ENCOUNTER → 2021-01-20 | Outpatient (REF) | payer OTHER ==
[~2021-01-20] MED LIST changes: +HYDR-3490 PO; -HYDR25TAB PO; +LISI10TA22 PO; -LISI10TA4 PO; -LISI40TA PO; +LISI40TA4 PO
== END ==
LOC: M SMT 12:44
PROVIDERS: ATTEND Urology
DX: R31.29 Other microscopic hematuria (principal)

== ENCOUNTER → 2021-02-02 | Outpatient (CLI) | payer MEDICARE, OTHER ==
[~2021-02-02] MED LIST changes: +ISOVUE-370 76% 100ML VIAL As Ordered ONE
--- NOTE | 2021-02-02 10:09 | REP ---
INDICATION: OTHER MICROSCOPIC HEMATURIA / PT IS HARD OF HEARING. COMPARISON: 11/29/2014 TECHNIQUE: Axial precontrast, contrast-enhanced, and delayed images from the lung bases to the pubic symphysis using 100 cc Isovue 370 intravenous contrast material. 3D CT volume rendered urogram created. This CT examination was performed using the following dose reduction techniques: Automated exposure control, adjustment of mA and/or kv according to the patient's size, and the use of iterative reconstruction technique. FINDINGS: Liver demonstrates fatty infiltration without focal hepatic lesion. Spleen, pancreas, gallbladder, and bilateral adrenal glands are normal. Evaluation of the urinary tract system demonstrates two 1 cm left renal hypodensities which based on CT evaluation likely represent small complex cysts. No nephrolithiasis, or obvious renal mass lesion. Delayed images demonstrate no hydronephrosis and essentially normal appearance to the collecting system and bladder. The enteric system including stomach, small, and large bowel appears normal. No evidence for obstruction or acute inflammatory process. Normal terminal ileum and appendix are identified in the right lower quadrant. Few scattered sigmoid diverticula noted without acute diverticulitis. Pelvis demonstrates normal bladder and age-appropriate prostate/seminal vesicles. No ascites. No free air. No intraperitoneal or retroperitoneal adenopathy. Abdominal aorta and vasculature appear normal. Musculoskeletal structures are intact and without acute osseous abnormality. IMPRESSION: No acute abdominopelvic pathology appreciated. Two small left renal hypodensities likely representing benign complex cyst. Consider renal ultrasound evaluation to confirm findings if necessary. <Electronically signed by Harry Moore > 02/02/21 [id number]
== END ==
LOC: M RAD 08:45
PROVIDERS: ATTEND Urology
DX: R31.29 Other microscopic hematuria (principal)
CPT/HCPCS: 74178; Q9967

== ENCOUNTER → 2021-05-20 | Outpatient (REF) | payer MEDICARE, OTHER ==
[~2021-05-20] MED LIST changes: -ISOVUE-370 76% 100ML VIAL As Ordered ONE; +OMEP40CA4 PO; -OMEP40CA97 PO
[2021-05-22 18:12] LABS: TESTOSTERONE FREE (DIRECT) 7.9 pg/mL (7.2-24.0)
== END ==
LOC: M LABSMT 13:57 → M SFHCADAM 13:59
PROVIDERS: ATTEND Urology
DX: Z00.00 Encounter for general adult medical examination without abnormal findings (principal)

== ENCOUNTER → 2021-07-28 | Outpatient (REF) | payer MEDICARE, OTHER ==
[~2021-07-28] MED LIST changes: -CLIN150C15 PO; +CLIN150C17 PO
[2021-07-28 13:08] LABS: BASO # 0.1 10^3/uL (0.0-0.2); BASO % 0.9 % (0.0-1.0); EOS # 0.3 10^3/uL (0.0-0.5); EOS % 3.9 % (0.0-3.0); HEMATOCRIT 41.8 % (42.0-52.0); HEMOGLOBIN 13.7 g/dl (13.5-17.5); LYMPH # 1.9 10^3/uL (1.5-5.0); LYMPH % 25.4 % (24.0-44.0); MEAN CORPUSCULAR HEMOGLOBIN 31.6 pg (27.0-33.0); MEAN CORPUSCULAR HGB CONC 32.8 g/dl (32.0-36.5); MEAN CORPUSCULAR VOLUME 96.5 fl (80.0-96.0); MONO # 0.8 10^3/uL (0.0-0.8); MONO % 10.3 % (2.0-8.0); NEUTROPHILS # 4.4 10^3/uL (1.5-8.5); NEUTROPHILS % 58.8 % (36.0-66.0); PLATELET COUNT, AUTOMATED 274 10^3/uL (150-450); RED BLOOD COUNT 4.33 10^6/uL (4.30-6.10); WHITE BLOOD COUNT 7.5 10^3/uL (4.0-10.0)
[2021-07-28 13:45] LABS: ALBUMIN 3.7 GM/DL (3.2-5.2); ALT/SGPT 36 U/L (12-78); BILIRUBIN,TOTAL 0.4 MG/DL (0.2-1.0); BLOOD UREA NITROGEN 20 MG/DL (7-18); CARBON DIOXIDE LEVEL 27 MEQ/L (21-32); CHLORIDE LEVEL 110 MEQ/L (98-107); CHOLESTEROL LEVEL 147 MG/DL (<200); CHOLESTEROL RISK RATIO 3.195 (<5); CREATININE FOR GFR 0.92 MG/DL (0.70-1.30); GLOMERULAR FILTRATION RATE > 60.0 (>49); GLUCOSE, FASTING 117 MG/DL (70-100); HDL CHOLESTEROL 46 MG/DL (>40); LDL CHOLESTEROL 88 MG/DL (<100); NON-HDL-C 101 MG/DL; POTASSIUM SERUM 3.9 MEQ/L (3.5-5.1); SODIUM LEVEL 143 MEQ/L (136-145); TOTAL 25(OH) VITAMIN D 23.2 NG/ML (30.0-100.0); TOTAL PROTEIN 6.9 GM/DL (6.4-8.2); TRIGLYCERIDES LEVEL 67 MG/DL (<150)
== END ==
LOC: M SFHCADAM 11:04
PROVIDERS: ATTEND Physician Assistant Medical
DX: I10 Essential (primary) hypertension (principal); K76.0 Fatty (change of) liver, not elsewhere classified; E55.9 Vitamin D deficiency, unspecified

== ENCOUNTER → 2023-01-27 | Outpatient (REF) | payer OTHER ==
[~2023-01-27] MED LIST changes: +OMEP-173; -OMEP-218
[2023-01-28 14:37] LABS: BASO # 0.1 10^3/uL (0.0-0.2); BASO % 0.5 % (0.0-1.0); EOS # 0.3 10^3/uL (0.0-0.5); EOS % 2.6 % (0.0-3.0); HEMATOCRIT 43.2 % (42.0-52.0); HEMOGLOBIN 14.3 g/dl (13.5-17.5); LYMPH # 2.9 10^3/uL (1.5-5.0); LYMPH % 27.3 % (24.0-44.0); MEAN CORPUSCULAR HGB CONC 33.1 g/dl (32.0-36.5); MEAN CORPUSCULAR VOLUME 93.7 fl (80.0-96.0); MONO # 0.9 10^3/uL (0.0-0.8); MONO % 8.3 % (2.0-8.0); NEUTROPHILS # 6.5 10^3/uL (1.5-8.5); NEUTROPHILS % 60.6 % (36.0-66.0); PLATELET COUNT, AUTOMATED 274 10^3/uL (150-450); RED BLOOD COUNT 4.61 10^6/uL (4.30-6.10); WHITE BLOOD COUNT 10.7 10^3/uL (4.0-10.0)
[2023-01-28 15:04] LABS: ALBUMIN 4.2 G/DL (3.2-5.2); ALKALINE PHOSPHATASE 58 U/L (46-116); ALT/SGPT 42 U/L (7.0-40); AST/SGOT 25 U/L (<34); BILIRUBIN,TOTAL 0.7 MG/DL (0.3-1.2); BLOOD UREA NITROGEN 15 MG/DL (9-23); CALCIUM LEVEL 9.4 MG/DL (8.3-10.6); CARBON DIOXIDE LEVEL 27 MMOL/L (20-31); CHLORIDE LEVEL 106 MMOL/L (98-107); CHOLESTEROL LEVEL 137 MG/DL (<200); CREATININE FOR GFR 0.84 MG/DL (0.70-1.30); GLOMERULAR FILTRATION RATE > 60.0 (>49); GLUCOSE, FASTING 95 MG/DL (74-106); HDL CHOLESTEROL 39.1 MG/DL (>40); LDL CHOLESTEROL 80.9 MG/DL (<100); NON-HDL-C 97.9 MG/DL; POTASSIUM SERUM 4.4 MMOL/L (3.5-5.1); SODIUM LEVEL 140 MMOL/L (136-145); THYROID STIMULATING HORMONE 0.929 uIU/ML (0.55-4.78); TOTAL 25(OH) VITAMIN D 26.4 NG/ML (20.0-100.0); TOTAL PROTEIN 7.1 G/DL (5.7-8.2); TRIGLYCERIDES LEVEL 85 MG/DL (<150)
[2023-01-28 15:10] LABS: MAU/CREAT RATIO 5.1 MCG/MG (0.0-30.0)
[2023-01-28 15:19] LABS: HEMOGLOBIN A1c 5.4 % (4.0-6.0)
== END ==
LOC: M SFHCADAM 15:27
PROVIDERS: ATTEND Physician Assistant Medical
DX: I10 Essential (primary) hypertension (principal); K76.0 Fatty (change of) liver, not elsewhere classified; D50.9 Iron deficiency anemia, unspecified; E55.9 Vitamin D deficiency, unspecified

== ENCOUNTER → 2023-06-30 | Outpatient (REF) | payer OTHER ==
[2023-06-30 15:28] LABS: APPEARANCE, URINE CLEAR (CLEAR); BACTERIA, URINE AUTO NEGATIVE (NEGATIVE); BILIRUBIN, URINE AUTO NEGATIVE (NEGATIVE); BLOOD, URINE BLOOD 1+ (NEGATIVE); COLOR, URINE STRAW (YELLOW); GLUCOSE, URINE (UA) AUTO NEGATIVE (NEGATIVE); KETONE, URINE AUTO NEGATIVE (NEGATIVE); LEUKOCYTE ESTERASE, URINE AUTO NEGATIVE (NEGATIVE); NITRITE, URINE AUTO NEGATIVE (NEGATIVE); PROTEIN, URINE AUTO NEGATIVE (NEGATIVE); RBC, URINE AUTO 0 /HPF (0-3); SPECIFIC GRAVITY URINE AUTO 1.006 (1.002-1.035); SQUAMOUS EPITHELIAL CELL UR AU 0 /HPF (0-6); UROBILINOGEN, URINE AUTO 0.2 mg/dL (0.0-2.0); WBC, URINE AUTO 0 /HPF (0-3)
[2023-06-30 16:02] LABS: ALBUMIN 4.3 G/DL (3.2-5.2); ALKALINE PHOSPHATASE 55 U/L (46-116); ALT/SGPT 42 U/L (7.0-40); AST/SGOT 17 U/L (<34); BILIRUBIN,TOTAL 0.5 MG/DL (0.3-1.2); BLOOD UREA NITROGEN 25 MG/DL (9-23); CALCIUM LEVEL 9.6 MG/DL (8.3-10.6); CARBON DIOXIDE LEVEL 26 MMOL/L (20-31); CHLORIDE LEVEL 107 MMOL/L (98-107); CHOLESTEROL LEVEL 154 MG/DL (<200); CREATININE FOR GFR 0.93 MG/DL (0.70-1.30); GLOMERULAR FILTRATION RATE > 60.0 (>49); GLUCOSE, FASTING 113 MG/DL (74-106); HDL CHOLESTEROL 46.6 MG/DL (>40); LDL CHOLESTEROL 91.8 MG/DL (<100); NON-HDL-C 107.4 MG/DL; POTASSIUM SERUM 3.8 MMOL/L (3.5-5.1); SODIUM LEVEL 141 MMOL/L (136-145); TOTAL PROTEIN 7.3 G/DL (5.7-8.2); TRIGLYCERIDES LEVEL 78 MG/DL (<150)
== END ==
LOC: M SFHCADAM 11:46
PROVIDERS: ATTEND Physician Assistant Medical
DX: N39.43 Post-void dribbling (principal); I10 Essential (primary) hypertension; K76.0 Fatty (change of) liver, not elsewhere classified

== ENCOUNTER → 2023-10-07 | Outpatient (REF) | payer OTHER ==
[2023-10-07 19:27] LABS: BLOOD UREA NITROGEN 24 MG/DL (9-23); CREATININE FOR GFR 0.85 MG/DL (0.70-1.30); GLOMERULAR FILTRATION RATE > 60.0 (>49)
== END ==
LOC: M LAB REF 13:43
PROVIDERS: ATTEND Psychiatry & Neurology Neurology
DX: I10 Essential (primary) hypertension (principal)

== ENCOUNTER → 2024-03-20 | Outpatient (REF) | payer MEDICARE, OTHER ==
[2024-03-20 18:02] LABS: ESTRADIOL 35.2 PG/ML (<39.8)
[2024-03-20 18:03] LABS: LUTEINIZING HORMONE 3.2 mIU/ML (1.5-9.3)
== END ==
LOC: M SFHCADAM 15:29
PROVIDERS: ATTEND Physician Assistant
DX: N52.9 Male erectile dysfunction, unspecified (principal)

== ENCOUNTER → 2024-06-29 | Outpatient (REF) | payer MEDICARE ==
[2024-06-29 17:53] LABS: APPEARANCE, URINE CLEAR (CLEAR); BACTERIA, URINE AUTO NEGATIVE (NEGATIVE); BILIRUBIN, URINE AUTO NEGATIVE (NEGATIVE); BLOOD, URINE BLOOD NEGATIVE (NEGATIVE); COLOR, URINE YELLOW (YELLOW); GLUCOSE, URINE (UA) AUTO NEGATIVE (NEGATIVE); KETONE, URINE AUTO NEGATIVE (NEGATIVE); LEUKOCYTE ESTERASE, URINE AUTO NEGATIVE (NEGATIVE); NITRITE, URINE AUTO NEGATIVE (NEGATIVE); PROTEIN, URINE AUTO NEGATIVE (NEGATIVE); RBC, URINE AUTO 0 /HPF (0-3); SPECIFIC GRAVITY URINE AUTO 1.008 (1.002-1.035); SQUAMOUS EPITHELIAL CELL UR AU 0 /HPF (0-6); UROBILINOGEN, URINE AUTO 0.2 mg/dL (0.0-2.0); WBC, URINE AUTO 0 /HPF (0-3)
[2024-06-29 19:01] LABS: HEMOGLOBIN 14.9 g/dl (13.5-17.5); MEAN CORPUSCULAR HEMOGLOBIN 31.6 pg (27.0-33.0); MEAN CORPUSCULAR HGB CONC 33.1 g/dl (32.0-36.5); MEAN CORPUSCULAR VOLUME 95.3 fl (80.0-96.0); PLATELET COUNT, AUTOMATED 227 10^3/uL (150-450); RED BLOOD COUNT 4.72 10^6/uL (4.30-6.10); WHITE BLOOD COUNT 9.1 10^3/uL (4.0-10.0)
[2024-06-29 19:03] LABS: ALBUMIN 4.2 G/DL (3.2-5.2); ALKALINE PHOSPHATASE 57 U/L (46-116); ALT/SGPT 55 U/L (7.0-40); AST/SGOT 26 U/L (<34); BILIRUBIN,TOTAL 0.5 MG/DL (0.3-1.2); BLOOD UREA NITROGEN 19 MG/DL (9-23); CALCIUM LEVEL 9.6 MG/DL (8.3-10.6); CARBON DIOXIDE LEVEL 26 MMOL/L (20-31); CHLORIDE LEVEL 109 MMOL/L (98-107); CREATININE FOR GFR 0.88 MG/DL (0.70-1.30); GLOMERULAR FILTRATION RATE > 60.0 (>49); GLUCOSE, FASTING 97 MG/DL (74-106); SODIUM LEVEL 140 MMOL/L (136-145); TOTAL PROTEIN 7.3 G/DL (5.7-8.2)
[2024-06-29 19:04] LABS: GC DNA AMPLIFICATION NEGATIVE (NEGATIVE)
== END ==
LOC: M SFHCADAM 13:44
DX: R39.9 Unspecified symptoms and signs involving the genitourinary system (principal); Z11.3 Encounter for screening for infections with a predominantly sexual mode of transmission

== ENCOUNTER → 2024-06-29 | Outpatient (CLI) | payer MEDICARE | LOC: M ADAMS 13:50 | DX: M85.88 Other specified disorders of bone density and structure, other site (principal); M51.36 Other intervertebral disc degeneration, lumbar region; M54.41 Lumbago with sciatica, right side ==

== ENCOUNTER → 2024-07-03 | Outpatient (REF) | payer MEDICARE | LOC: M SFHCPLAZ 13:41 | DX: M25.50 Pain in unspecified joint (principal) ==

== ENCOUNTER → 2024-08-02 | Outpatient (REF) | payer MEDICARE ==
[2024-08-02 19:01] LABS: BASO # 0.1 10^3/uL (0.0-0.2); BASO % 0.5 % (0.0-1.0); EOS # 0.3 10^3/uL (0.0-0.5); EOS % 3.5 % (0.0-3.0); HEMOGLOBIN 14.4 g/dl (13.5-17.5); LYMPH % 21.3 % (24.0-44.0); MEAN CORPUSCULAR HEMOGLOBIN 32.1 pg (27.0-33.0); MEAN CORPUSCULAR HGB CONC 33.5 g/dl (32.0-36.5); MONO # 0.8 10^3/uL (0.0-0.8); MONO % 8.5 % (2.0-8.0); NEUTROPHILS # 6.1 10^3/uL (1.5-8.5); NEUTROPHILS % 65.7 % (36.0-66.0); PLATELET COUNT, AUTOMATED 266 10^3/uL (150-450); RED BLOOD COUNT 4.48 10^6/uL (4.30-6.10); WHITE BLOOD COUNT 9.2 10^3/uL (4.0-10.0)
[2024-08-02 19:15] LABS: ALBUMIN 4.1 G/DL (3.2-5.2); ALKALINE PHOSPHATASE 59 U/L (46-116); ALT/SGPT 54 U/L (7.0-40); AST/SGOT 29 U/L (<34); BILIRUBIN,TOTAL 0.4 MG/DL (0.3-1.2); BLOOD UREA NITROGEN 16 MG/DL (9-23); CARBON DIOXIDE LEVEL 28 MMOL/L (20-31); CHLORIDE LEVEL 108 MMOL/L (98-107); CHOLESTEROL LEVEL 124 MG/DL (<200); CHOLESTEROL RISK RATIO 3.53 (<5); CREATININE FOR GFR 0.87 MG/DL (0.70-1.30); GLOMERULAR FILTRATION RATE > 60.0 (>49); GLUCOSE, FASTING 104 MG/DL (74-106); HDL CHOLESTEROL 35.1 MG/DL (>40); LDL CHOLESTEROL 80.1 MG/DL (<100); NON-HDL-C 88.9 MG/DL; SODIUM LEVEL 143 MMOL/L (136-145); TOTAL PROTEIN 7.2 G/DL (5.7-8.2); TRIGLYCERIDES LEVEL 44 MG/DL (<150)
[2024-08-02 19:19] LABS: TOTAL 25(OH) VITAMIN D 34.7 NG/ML (20.0-100.0)
== END ==
LOC: M SFHCADAM 11:19
PROVIDERS: ATTEND Physician Assistant Medical
DX: M51.36 Other intervertebral disc degeneration, lumbar region (principal); K76.0 Fatty (change of) liver, not elsewhere classified; F17.210 Nicotine dependence, cigarettes, uncomplicated; E55.9 Vitamin D deficiency, unspecified; E66.01 Morbid (severe) obesity due to excess calories; Z79.899 Other long term (current) drug therapy

== ENCOUNTER → 2024-09-13 | Outpatient (REF) | payer MEDICARE ==
[2024-09-13 19:23] LABS: ALKALINE PHOSPHATASE 57 U/L (40-129); ALT/SGPT 39 U/L (7.0-40); AST/SGOT 17 U/L (<34); BILIRUBIN,TOTAL 0.3 MG/DL (0.3-1.2); BLOOD UREA NITROGEN 20 MG/DL (9-23); CALCIUM LEVEL 10.1 MG/DL (8.3-10.6); CARBON DIOXIDE LEVEL 25 MMOL/L (20-31); CHLORIDE LEVEL 110 MMOL/L (98-107); CPK CREATINE PHOSPHOKINASE 90 U/L (46-171); CREATININE FOR GFR 0.79 MG/DL (0.70-1.30); GLOMERULAR FILTRATION RATE > 60.0 (>49); GLUCOSE, FASTING 104 MG/DL (74-106); POTASSIUM SERUM 4.3 MMOL/L (3.5-5.1); SODIUM LEVEL 143 MMOL/L (136-145); TOTAL PROTEIN 7.3 G/DL (5.7-8.2)
== END ==
LOC: M SFHCADAM 12:01
PROVIDERS: ATTEND Physician Assistant Medical
DX: E78.2 Mixed hyperlipidemia (principal)